=== PATIENT | female | born 1985 | race Caucasian/White ===

== ENCOUNTER 2020-01-25 19:19 | Inpatient (IN) ==
[2020-01-25 19:54] VITALS: BMI 23.0
[2020-01-25 20:10] LABS: BILIRUBIN,URINE NEGATIVE (NEGATIVE); BLOOD/HEMOGLOBIN,URINE 5+ (NEGATIVE); GLUCOSE, URINE NEGATIVE (NEGATIVE); KETONES,URINE 4+ (NEGATIVE); LEUKOCYTE ESTERASE ,URINE 3+ (NEGATIVE); NITRITES,URINE NEGATIVE (NEGATIVE); PROTEIN,URINE 3+ (NEGATIVE); UROBILINOGEN,URINE 2+ (NORMAL)
[2020-01-25] MEDS ORDERED: LR 1000 ML IV 1,000 ML IV ONE (20:19)
[2020-01-25] MEDS ORDERED: D5LR 1L W PITOCIN 10 UNITS/L 10 UNITS/1,000 ML BAG IV ONE (20:20)
[2020-01-25] MEDS ORDERED: PITOCIN ONE (20:20)
[2020-01-25] MEDS ORDERED: D5 1/2 NS 1L W PITOCIN 20 UNITS/L 20 UNITS/1,000 ML BAG IV ONE (20:20)
[2020-01-25 20:23] LABS: COLOR,URINE BLOODY (YELLOW)
[2020-01-25 20:24] LABS: APPEARANCE,URINE CLOUDY (CLEAR); RBC,URINE TNTC /HPF (0-3)
[2020-01-25 20:25] LABS: BACTERIA,URINE 1+ /HPF (NEGATIVE); SQUAMOUS EPITHELIAL CELL,UR FEW /HPF (NEGATIVE)
[2020-01-25 20:28] LABS: AMNISURE ROM TEST NO MEMBRANES RUPTURE (NO RUPTURE)
[2020-01-25 20:43] LABS: BASOPHILS # (AUTO) 0.2 X10^3/uL (0.0-0.1); BASOPHILS % (AUTO) 0.9 % (0.2-1.0); EOSINOPHILS # (AUTO) 0.1 x10^3/uL (0.0-0.2); EOSINOPHILS % (AUTO) 0.4 % (0.9-2.9); HEMATOCRIT 31.2 % (36.0-47.0); HEMOGLOBIN 10.7 g/dL (12.0-16.0); LYMPHOCYTES # (AUTO) 3.2 X10^3/uL (1.3-2.9); LYMPHOCYTES % (AUTO) 18.8 % (21.0-51.0); MEAN CORPUSCULAR HEMOGLOBIN 29.1 pg (27.0-34.0); MEAN CORPUSCULAR HGB CONC 34.1 g/dL (33.0-35.0); MEAN CORPUSCULAR VOLUME 85.4 fL (80.0-100.0); MEAN PLATELET VOLUME 7.6 fL (7.4-11.0); MONOCYTES # (AUTO) 0.9 x10^3/uL (0.3-0.8); MONOCYTES % (AUTO) 5.5 % (0.0-13.0); NEUTROPHILS # (AUTO) 12.5 x10^3/uL (2.2-4.8); NEUTROPHILS % (AUTO) 74.4 % (42.0-75.0); PLATELET COUNT 352 X10^3/uL (150.0-450.0); RED BLOOD COUNT 3.66 X10^6/uL (3.5-5.4); RED CELL DISTRIBUTION WIDTH 16.2 % (11.6-16.5); WHITE BLOOD COUNT 16.8 X10^3/uL (3.6-10.0)
[2020-01-25 20:52] LABS: ALANINE AMINOTRANSFERASE 14 Units/L (12-78); ALBUMIN 2.7 g/dL (3.4-5.0); ALKALINE PHOSPHATASE 201 Units/L (46-116); ASPARTATE AMINO TRANSFERASE 16 Units/L (15-37); BLOOD UREA NITROGEN 6 mg/dL (7-18); CALCIUM 8.3 mg/dL (8.5-10.1); CARBON DIOXIDE 21.9 mmol/L (21-32); CHLORIDE 100 mmol/L (98-107); COR CA(FOR HYPOALB) 9.3 mg/dL (8.5-10.1); CREATININE 0.64 mg/dL (0.55-1.02); SODIUM 134 mmol/L (136-145); TOTAL PROTEIN 6.2 g/dL (6.4-8.2); eGFR NON BLACK RACES > 60 (>60)
[2020-01-25] MEDS ORDERED: STADOL INJ ONE (20:54)
[2020-01-25] MEDS ORDERED: MORPHINE SULFATE INJ 2 MG INJ IVP PRN (20:57)
[2020-01-25] MEDS ORDERED: PHENERGAN INJ 25 MG IM PRN ×2 (20:57→23:25)
[2020-01-25] MEDS ORDERED: DILAUDID INJ IVP PRN (20:57)
[2020-01-25] MEDS ORDERED: PITOCIN IVP ONE (20:57)
[2020-01-25] MEDS ORDERED: NUBAIN INJ 200 MG VIAL MULTIDOSE IVP PRN (20:57)
[2020-01-25] MEDS ORDERED: D5LR 1L W PITOCIN 10 UNITS/L 10 UNITS/1,000 ML BAG IV PRN (20:57)
[2020-01-25] MEDS ORDERED: STADOL INJ IVP PRN (21:00)
[2020-01-25] MEDS ORDERED: LR 1000 ML IV 1,000 ML IV SCH (22:00)
[2020-01-25] MEDS ORDERED: MOTRIN TAB 800 MG PO PRN (23:25)
[2020-01-25] MEDS ORDERED: MILK OF MAGNESIA PO PRN (23:40)
[2020-01-25] MEDS ORDERED: DERMOPLAST PAIN RELIEF SPRAY TOP PRN (23:40)
[2020-01-25] MEDS ORDERED: AMBIEN PO PRN (23:40)
[2020-01-25] MEDS ORDERED: D5 1/2 NS 1000 ML 1,000 ML with PITOCIN 20 UNITS IV SCH ×2 (23:45)
[2020-01-26 05:45] LABS: HEMATOCRIT 31.6 % (36.0-47.0); HEMOGLOBIN 10.6 g/dL (12.0-16.0)
[2020-01-26] MEDS: PRENATAL PLUS PO SCH (09:44)
[2020-01-27] MEDS: PRENATAL PLUS PO SCH (08:21)
[2020-01-27 08:29] VITALS: BP 111/69
== END 2020-01-27 11:03 | disposition home or self-care (01) | DRG 807 ==
LOC: ER 19:20 → LD 20:13 → MED/SURG 23:40
PROVIDERS: ADMIT Obstetrics & Gynecology Obstetrics; ATTEND Obstetrics & Gynecology Obstetrics
DX: O80 Encounter for full-term uncomplicated delivery; Z3A.38 38 weeks gestation of pregnancy; Z37.0 Single live birth
CPT/HCPCS: 36415; 59409; 80053; 81001; 84112; 85014; 85018; 85025; 86592; 86850; 86900; 86901; 87086; 87635; 96365; 99284; A4216; A4222; J0595; J2590; J7120; S0197; S5010